=== PATIENT | female | born 1950 | race Asian ===

== ENCOUNTER 2017-11-06 18:15 | Emergency (ER) | payer SELFPAY ==
[2017-11-06 18:35] VITALS: BP 153/93; PULSE 90; TEMP 98; BMI 32.2
--- NOTE | 2017-11-06 18:38 | PDOC ---
Rapid Medical Evaluation Time Seen by Provider: 11/06/17 18:32 Medical Evaluation: 11/06/17 18:32 I have performed a brief in-person evaluation of this patient. The patient presents with a chief complaint of: medication refill. Asx. H/o DM, HLD Pertinent physical exam findings:stable I have ordered the following:nothing The patient will proceed to the ED for further evaluation. Discharge Disposition - Diagnosis Medication refill - Referrals - Patient Instructions - Post Discharge Activity
--- NOTE | 2017-11-06 18:57 | PDOC ---
History of Present Illness - General Chief Complaint: RX Refill Stated Complaint: SUGAR LEVEL Time Seen by Provider: 11/06/17 18:32 History Source: Patient Exam Limitations: No Limitations - History of Present Illness Initial Comments: 11/06/17 19:21 67-year-old woman past medical history of diabetes and hyperlipidemia who presents emergency room requesting refill of her medications. Patient is no he arrived in [facility] from [facility] and has her medication list with her. Patient has been taking his medications to be a blister pack while in [facility] but runs out of medication in 3 days. Patient currently denies all complaints. Past History - Past Medical History Allergies/Adverse Reactions: Allergies Allergy/AdvReac Type Severity Reaction Status Date / Time No Known Allergies Allergy Verified 11/06/17 18:35 Home Medications: Ambulatory Orders Rosuvastatin Calcium 10 mg PO HS #30 tablet 11/06/17 metFORMIN XR [Glucophage *Xr* -] 1,000 mg PO BID #120 tab.sr.24h 11/06/17 - Suicide/Smoking/Psychosocial Hx Smoking History: Never smoked Have you smoked in the past 12 months: No Information on smoking cessation initiated: No Hx Alcohol Use: No Drug/Substance Use Hx: No Review of Systems - Review of Systems Able to Perform ROS?: Yes Is the patient limited Frisian proficient: No All Other Systems: Reviewed and Negative *Physical Exam - Vital Signs Last Vital Signs Temp Pulse Resp BP Pulse Ox 98.0 F 90 16 153/93 100 11/06/17 18:33 11/06/17 18:33 11/06/17 18:33 11/06/17 18:33 11/06/17 18:33 - Physical Exam General Appearance: Yes: Appropriately Dressed. No: Apparent Distress HEENT: positive: Normal ENT Inspection Neck: positive: Trachea midline, Supple Respiratory/Chest: positive: Lungs Clear, Normal Breath Sounds. negative: Respiratory Distress, Accessory Muscle Use Cardiovascular: positive: Regular Rhythm, Regular Rate. negative: Murmur Gastrointestinal/Abdominal: positive: Normal Bowel Sounds, Soft. negative: Tender Musculoskeletal: positive: Normal Inspection. negative: CVA Tenderness Extremity: positive: Normal Inspection Integumentary: positive: Normal Color, Dry, Warm Neurologic: positive: concrete block molder II-XII NML intact, Fully Oriented, Alert, Normal Mood/ Affect, Normal Response, Motor Strength 5/5 Medical Decision Making - Medical Decision Making 11/06/17 18:49 A/P: 67-year-old woman with past medical history of diabetes and hyperlipidemia requesting refills of her medications Patient has a list of her medications from [facility] contacted and equivalents US medications obtained I'll prescribe her medication and a one-month supply with the exception of Januvia and glipizide which does not have the direct dosage equivalents from the patient's home medications Patient is requesting to see Dr. Nelson as a primary doctor for continued evaluation I will refer Januvia and glipizide dosing to patient's primary doctor Daughter agrees to take the patient to Dr. Dowling for titration of antidiabetics. I will collect basic labs with an A1c for Dr. Dowling to evaluate. *DC/Admit/Observation/Transfer Diagnosis at time of Disposition: Medication refill - Discharge Dispostion Disposition: HOME Condition at time of disposition: Stable Decision to Admit order: No - Prescriptions Prescriptions: metFORMIN XR [Glucophage *Xr* -] 1,000 mg PO BID #120 tab.sr.24h Rosuvastatin Calcium 10 mg PO HS #30 tablet - Referrals Referrals: Kyree Dowling MD [Staff Physician] - - Patient Instructions Additional Instructions: Make an appointment with Dr. Nelson for immediate evaluation and blood work Return to emergency department for any concerns. - Post Discharge Activity
[2017-11-06 19:37] LABS: BASO % 0.4 % (0-2.0); EOS % 3.9 % (0-4.5); HEMATOCRIT 40.2 % (32.4-45.2); HEMOGLOBIN 13.5 GM/dL (10.7-15.3); LYMPH % 39.4 % (8-40); MCHC 33.5 g/dl (32.0-36.0); MEAN CELL VOLUME 89.7 fl (80-96); MEAN PLT VOLUME 8.6 fl (7.5-11.1); MONO % 7.8 % (3.8-10.2); NEUT % 48.5 % (42.8-82.8); PLATELET COUNT 277 K/MM3 (134-434); RBC 4.48 M/mm3 (3.60-5.2); RDW 13.1 % (11.6-15.6); WHITE BLOOD COUNT 9.3 K/mm3 (4.0-10.0)
[2017-11-06 19:59] LABS: ALBUMIN 3.9 g/dl (3.4-5.0); ANION GAP 9 (8-16); BILIRUBIN,TOTAL 0.4 mg/dL (0.2-1.0); BLOOD UREA NITROGEN 17 mg/dL (7-18); CHLORIDE 107 mmol/L (98-107); CO2 26 mmol/L (21-32); CREATININE 0.9 mg/dL (0.55-1.02); GLUCOSE,RANDOM 119 mg/dL (74-106); POTASSIUM 4.1 mmol/L (3.5-5.1); SGOT/AST 15 U/L (15-37); SGPT/ALT 24 U/L (12-78); SODIUM 142 mmol/L (136-145)
[2017-11-06 20:01] LABS: ALK PHOS 69 U/L (45-117); TOT PROT 7.8 g/dl (6.4-8.2)
== END 2017-11-06 19:25 | disposition home or self-care (01) ==
LOC: JERFT 18:15
DX: E11.9 Type 2 diabetes mellitus without complications (principal); Z79.84 Long term (current) use of oral hypoglycemic drugs; E78.5 Hyperlipidemia, unspecified
CPT/HCPCS: 36415; 80053; 83036; 85025; 99281-25